=== PATIENT | male | born 1955 | race Caucasian/White ===

== ENCOUNTER 2018-02-03 23:37 | Emergency (ER) | payer BC ==
[~2018-02-03] VITALS: Ht 182.9 cm; Wt 98.9 kg
[2018-02-04 00:50] LABS: BASOPHILS # (AUTO) 0.1 (0.0-0.1); BASOPHILS % 0.3 % (0.0-1.0); HEMATOCRIT 44.1 % (38.2-49.6); HEMOGLOBIN 15.5 g/dL (14.0-18.0); LYMPHOCYTES # (AUTO) 1.5 (1.0-3.2); LYMPHOCYTES % 8.7 % (18.0-39.1); MEAN CORPUSCULAR HEMOGLOBIN 31.8 pg (28-32); MEAN CORPUSCULAR HGB CONC 35.1 g/dL (31-35); MEAN CORPUSCULAR VOLUME 90.4 fL (81-99); MONOCYTES # (AUTO) 1.7 (0.2-0.8); MONOCYTES % 10.2 % (4.4-11.3); NEUTROPHILS # (AUTO) 13.5 (2.1-6.9); NEUTROPHILS % 80.3 % (38.7-80.0); PLATELET COUNT 223 x10e3/uL (140-360); RED BLOOD COUNT 4.88 x10e6/uL (4.3-5.7); RED CELL DISTRIBUTION WIDTH 12.1 % (11.7-14.4)
[2018-02-04 00:51] LABS: KETONES,URINE TRACE (NEGATIVE); LEUKOCYTE ESTERASE ,URINE 1+ (NEGATIVE); NITRITE,URINE NEGATIVE (NEGATIVE); URINE UROBILINOGEN 4 mg/dL (0.2 - 1)
[2018-02-04 00:52] LABS: BILIRUBIN,URINE 1+ (NEGATIVE); CLARITY,URINE CLOUDY (CLEAR); COLOR,URINE AMBER (YELLOW); PROTEIN,URINE DIPSTICK 2+ (NEGATIVE)
[2018-02-04 00:59] LABS: EPITHELIAL CELLS,URINE RARE /LPF; RBC,URINE >50 /HPF (0-5)
[2018-02-04 01:06] LABS: INR 1.01; PROTHROMBIN TIME 12.5 seconds (11.9-14.5)
[2018-02-04 01:07] LABS: PARTIAL THROMBOPLASTIN TIME 30.6 seconds (23.8-35.5)
[2018-02-04 01:13] LABS: ALANINE AMINOTRANSFERASE 18 IU/L (0-55); ALBUMIN 4.2 g/dL (3.5-5.0); ALBUMIN/GLOBULIN RATIO 0.9 (0.8-2.0); ALKALINE PHOSPHATASE 66 IU/L (40-150); ANION GAP 17.9 mmol/L (8-16); BLOOD UREA NITROGEN 12 mg/dL (7-26); BUN/CREATININE RATIO 13 (6-25); CALCIUM 9.7 mg/dL (8.4-10.2); CARBON DIOXIDE 24 mmol/L (22-29); CHLORIDE 98 mmol/L (98-107); CREATININE, SERUM 0.95 mg/dL (0.72-1.25); EST GLOMERULAR FILTRATION RATE > 60 ML/MIN (60-); GLUCOSE 151 mg/dL (74-118); POTASSIUM 3.9 mmol/L (3.5-5.1); SODIUM 136 mmol/L (136-145)
--- NOTE | 2018-02-04 01:17 | Diagnostic Imaging Report ---
EXAM: CT Abdomen and Pelvis WITHOUT contrast INDICATION: Flank pain COMPARISON: None. TECHNIQUE: Abdomen and pelvis were scanned utilizing a multidetector helical scanner from the lung base to the pubic symphysis without administration of IV contrast. Absence of intravenous contrast decreases sensitivity for detection of focal lesions and vascular pathology. Coronal and sagittal reformations were obtained. Stone protocol is performed. IV CONTRAST: None. ORAL CONTRAST: None RADIATION DOSE: Total DLP: 758.9 mGy*cm Estimated effective dose: (DLP x 0.015 x size factor) mSv COMPLICATIONS: None FINDINGS: LINES and TUBES: None. LOWER THORAX: Right lower lobe airspace opacity compatible with pneumonia best visualized on series 3, image 7 HEPATOBILIARY: No focal hepatic lesions. No biliary ductal dilation. GALLBLADDER: No radio-opaque stones or sludge. No wall thickening. SPLEEN: No splenomegaly. PANCREAS: No focal masses or ductal dilatation. ADRENALS: No adrenal nodules KIDNEYS/URETERS: No hydronephrosis. 1 cm cyst in the lateral interpolar region of the left kidney. No stones. GI TRACT: No abnormal distention, wall thickening, or evidence of bowel obstruction. There are diverticula within the colon without evidence of diverticulitis. Appendix is normal. PELVIC ORGANS/BLADDER: Unremarkable. LYMPH NODES: No lymphadenopathy. VESSELS: There is mild atherosclerotic disease in the aorta and major arterial branches. PERITONEUM / RETROPERITONEUM: No free air or fluid. BONES: There are mild degenerative changes in the lumbar spine. SOFT TISSUES: There are bilateral fat containing inguinal hernias. IMPRESSION: 1. Findings are compatible with right lower lobe pneumonia. 2. No evidence of nephrolithiasis or hydronephrosis. 3. Diverticulosis without evidence of diverticulitis. Signed by: Dr. Marcial Goddard M.D. on 02/04/2018 1:13 AM
[2018-02-04] MEDS ORDERED: LEVOFLOXACIN 250 MG TAB ONE (02:08)
[2018-02-04 02:09] VITALS: BP 132/91
[2018-02-04] MEDS ORDERED: LEVOFLOXACIN 250 MG TAB PO ONE (02:15)
== END 2018-02-04 02:34 | disposition home or self-care (01) ==
LOC: ER 23:37
DX: N30.01 Acute cystitis with hematuria (principal); R05 Cough; J15.9 Unspecified bacterial pneumonia
CPT/HCPCS: 36415; 74176; 80053; 81001; 85025; 85610; 85730; 99284

== ENCOUNTER 2018-02-09 12:00 | Emergency (ER) | payer BC ==
[~2018-02-09] VITALS: Ht 182.9 cm; Wt 98.9 kg
--- OUTSIDE RECORDS SUMMARY | 2018-02-09 12:03 | XMS REPORT ---
Author Author [facility] Address Unknown Phone Unavailable Care Team Providers Care Ham Stringer Name Role Phone KAYLENE WATSON Unavailable Unavailable Problems This patient has no known problems. Allergies, Adverse Reactions, Alerts This patient has no known allergies or adverse reactions. Medications This patient has no known medications. Results Test Description Test Time Test Comments Text Results Atomic Results Result Comments CT ABDOMEN/PELVIS WO [place] [address] Patient Name: MARY HINTON MR #: [id number] : 1955 Age/Sex: 62/M Req #: [id number] Adm Physician: Ordered by: KAYLENE WATSON MD Report #: [id number] Location: ER Room/Bed: Procedure: [id number] CT/CT ABDOMEN/PELVIS WO Exam Date: 02/04/18 Exam Time: 34 REPORT STATUS: Signed EXAM: CT Abdomen and Pelvis WITHOUT contrast INDICATION: Flank pain COMPARISON: None. TECHNIQUE: Abdomen and pelvis were scanned utilizing a multidetector helical scanner from the lung base to the pubic symphysis without administration of IV contrast. Absence of intravenous contrast decreases sensitivity for detection of focal lesions and vascular pathology. Coronal and sagittal reformations were obtained. Stone protocol is performed. IV CONTRAST: None. ORAL CONTRAST: None RADIATION DOSE: Total DLP: 758.9 mGy *cm Estimated effective dose: (DLP x 0.015 x size factor) mSv COMPLICATIONS: None FINDINGS: LINES and TUBES: None. LOWER THORAX: Right lower lobe airspace opacity compatible with pneumonia best visualized on series 3, image 7 HEPATOBILIARY: No focal hepatic lesions. No biliary ductal dilation. GALLBLADDER: No radio-opaque stones or sludge. No wall thickening. SPLEEN: No splenomegaly. PANCREAS: No focal masses or ductal dilatation. ADRENALS: No adrenal nodules KIDNEYS/URETERS: No hydronephrosis. 1 cm cyst in the lateral interpolar region of the left kidney. No stones. GI TRACT: No abnormal distention, wall thickening, or evidence of bowel obstruction. There are diverticula within the colon without evidence of diverticulitis. Appendix is normal. PELVIC ORGANS/BLADDER: Unremarkable. LYMPH NODES: No lymphadenopathy. VESSELS: There is mild atherosclerotic disease in the aorta and major arterial branches. PERITONEUM / RETROPERITONEUM: No free air or fluid. BONES: There are mild degenerative changes in the lumbar spine. SOFT TISSUES: There are bilateral fat containing inguinal hernias. IMPRESSION: 1. Findings are compatible with right lower lobe pneumonia. 2. No evidence of nephrolithiasis or hydronephrosis. 3. Diverticulosis without evidence of diverticulitis. Signed by: Dr. Marcial Goddard M.D. on 08/2018 1:13 AM Dictated By: MARCIAL LAZCANO MD 2 Transcribed By: ALAF on 02/04/18112 COPY TO: KAYLENE WATSON MD
--- OUTSIDE RECORDS SUMMARY | 2018-02-09 12:03 | XMS REPORT | Continuity of Care Document ---
Author Author [facility] Organization [facility] Address [address] [place] [address] Phone Unavailable Care Team Providers Care Adoption Specialist Name Role Phone AZAEL CAMARGO MD PCP Insurance Providers Guarantor Mary Hinton Address [address] [place] [id number] Payer [facility] Policy Number [id number] Subscriber's Name Mary Hinton Relationship 18 Self / Same As Patient Group Number [id number] Group Name NRG Effective Date 09 Advance Directives Directive Response Recorded Date/Time Does the patient have an advance directive? No 02/11/11 6:41pm If yes, is advance directive on file with [facility]? No 02/11/11 6:41pm If not on file with [facility] will patient provide a copy? Yes 02/04/18 1:43am Do you have a Directive to Physician? No 02/04/18 1:43am Do you have a Medical Power of Wrapper Counter? No 02/04/18 1:43am Do you have an out of hospital Do Not Resuscitate Order? No 02/04/18 1:43am Do you have any special needs we should be aware of? No 02/04/18 1:43am Do you have a support person here with you today? Yes 02/04/18 1:43am Did patient receive Notice of Privacy Practices? Yes 02/04/18 1:43am Did patient receive patient rights and responsibilities? Yes 02/04/18 1:43am Problems No problem information available. Medications No medication information available. Social History No social history information available. Hospital Discharge Instructions No hospital discharge instruction information available. Plan of Care Discharge Date 02/04/18 2:34am Disposition HOME, SELF-CARE Condition at Discharge Stable Instructions/Education Provided Hematuria - Male Pneumonia - Bacterial Forms Provided Work/School Excuse Prescriptions See Medication Section Referrals AZAEL CAMARGO MD Order Date: [facility] Address: [address] [place] [id number] Additional Instructions/Education TAKE MEDICATIONS PRESCRIBED DRINK PLENTY OF WATER, AT LEAST 80 OUNCES PER DAY FOLLOW-UP WITH YOUR DOCTOR SOON POSSIBLE Functional Status No functional status information available. Allergies, Adverse Reactions, Alerts No known allergies. Immunizations No immunization information available. Vital Signs Acute Vital Signs Vital Response Date/Time Pulse Pulse Rate (adult) 65 bpm (60 - 90) 02/04/2018 2:09am Respiratory Rate 16 bpm (12 - 24) 02/04/2018 2:09am Blood Pressure 132/91 mm Hg 02/04/2018 2:09am Height 6 ft 0 in 02/04/2018 12:14am Weight 218 lb 02/04/2018 12:14am Body Mass Index 29.6 kg/m^2 02/04/2018 12:14am Results Laboratory Results Test Name Result Units Flags Reference Collection Date/Time Result Date/ Time Comments White Blood Count 16.81 x10e3/uL H 4.8-10.8 02/04/2018 12:30am 2017 12:52am Red Blood Count 4.88 x10e6/uL 4.3-5.7 02/04/2018 12:30am 02/04/2018 12: 52am Hemoglobin 15.5 g/dL 14.0-18.0 02/04/2018 12:30am 02/04/2018 12:52am Hematocrit 44.1 % 38.2-49.6 02/04/2018 12:30am 02/04/2018 12:52am Mean Corpuscular Volume 90.4 fL 81-99 02/04/2018 12:30am 02/04/2018 12: 52am Mean Corpuscular Hemoglobin 31.8 pg 28-32 02/04/2018 12:30am 2017 12:52am Mean Corpuscular Hemoglobin Concent 35.1 g/dL H 31-35 02/04/2018 12:30am 02/04/2018 12:52am Red Cell Distribution Width 12.1 % 11.7-14.4 02/04/2018 12:30am 2017 12:52am Platelet Count 223 x10e3/uL 140-360 02/04/2018 12:30am 02/04/2018 12: 52am Neutrophils (%) (Auto) 80.3 % H 38.7-80.0 02/04/2018 12:30am 02/04/2018 12:52am Lymphocytes (%) (Auto) 8.7 % L 18.0-39.1 02/04/2018 12:30am 02/04/2018 12:52am Monocytes (%) (Auto) 10.2 % 4.4-11.3 02/04/2018 12:30am 02/04/2018 12: 52am Eosinophils (%) (Auto) 0.0 % 0.0-6.0 02/04/2018 12:30am 02/04/2018 12: 52am Basophils (%) (Auto) 0.3 % 0.0-1.0 02/04/2018 12:30am 02/04/2018 12: 52am IM GRANULOCYTES % 0.5 % 0.0-1.0 02/04/2018 12:30am 02/04/2018 12:52am Neutrophils # (Auto) 13.5 H 2.1-6.9 02/04/2018 12:30am 02/04/2018 12: 52am Lymphocytes # (Auto) 1.5 1.0-3.2 02/04/2018 12:30am 02/04/2018 12: 52am Monocytes # (Auto) 1.7 H 0.2-0.8 02/04/2018 12:30am 02/04/2018 12: 52am Eosinophils # (Auto) 0.0 0.0-0.4 02/04/2018 12:30am 02/04/2018 12: 52am Basophils # (Auto) 0.1 0.0-0.1 02/04/2018 12:30am 02/04/2018 12:52am Absolute Immature Granulocyte (auto 0.08 x10e3/uL 0-0.1 02/04/2018 12: 30am 02/04/2018 12:52am Prothrombin Time 12.5 seconds 11.9-14.5 02/04/2018 12:30am 02/04/2018 1 :10am Prothromb Time International Ratio 1.01 02/04/2018 12:30am 2017 1:10am Oral Anticoagulant Therapy INR Values: 1. Low Intensity Therapy 1.5 - 2.0 2. Moderate Intensity Therapy 2.0 - 3.0 3. High Intensity Therapy(1) 2.5 - 3.5 4. High Intensity Therapy(2) 3.0 - 4.0 5. Panic Value INR > 5.0 Activated Partial Thromboplast Time 30.6 seconds 23.8-35.5 02/04/2018 12 :30am 02/04/2018 1:10am Urine Color JAYNE H YELLOW 02/04/2018 12:30am 02/04/2018 12:52am Urine Clarity CLOUDY H CLEAR 02/04/2018 12:30am 02/04/2018 12:52am Urine Specific [place] 1.015 1.010-1.025 02/04/2018 12:30am 2017 12:52am Urine pH 6.5 5 - 7 02/04/2018 12:30am 02/04/2018 12:52am Urine Leukocyte Esterase 1+ H NEGATIVE 02/04/2018 12:30am 02/04/2018 12:52am Urine Nitrite NEGATIVE NEGATIVE 02/04/2018 12:30am 02/04/2018 12: 52am Urine Protein 2+ H NEGATIVE 02/04/2018 12:30am 02/04/2018 12:52am Urine Glucose (UA) NEGATIVE NEGATIVE 02/04/2018 12:30am 02/04/2018 12 :52am Urine Ketones TRACE H NEGATIVE 02/04/2018 12:30am 02/04/2018 12:52am Urine Urobilinogen 4 mg/dL H 0.2 - 1 02/04/2018 12:30am 02/04/2018 12: 52am Urine Bilirubin 1+ H NEGATIVE 02/04/2018 12:30am 02/04/2018 12:52am Confirmatory test currently unavailable. False positive results may occur. Urine Blood 4+ H NEGATIVE 02/04/2018 12:30am 02/04/2018 12:52am Urine WBC 6-10 /HPF H 0-5 02/04/2018 12:30am 02/04/2018 12:59am Urine RBC >50 /HPF H 0-5 02/04/2018 12:30am 02/04/2018 12:59am Urine Bacteria NONE /HPF NONE 02/04/2018 12:30am 02/04/2018 12:59am Urine Epithelial Cells RARE /LPF NONE 02/04/2018 12:30am 02/04/2018 12: 59am Sodium Level 136 mmol/L 136-145 02/04/2018 12:30am 02/04/2018 1:21am Potassium Level 3.9 mmol/L 3.5-5.1 02/04/2018 12:30am 02/04/2018 1: 21am Chloride Level 98 mmol/L 98-107 02/04/2018 12:30am 02/04/2018 1:21am Carbon Dioxide Level 24 mmol/L 22-29 02/04/2018 12:30am 02/04/2018 1: 21am Anion Gap 17.9 mmol/L H 8-16 02/04/2018 12:30am 02/04/2018 1:21am Blood Urea Nitrogen 12 mg/dL 7-26 02/04/2018 12:30am 02/04/2018 1:21am Creatinine 0.95 mg/dL 0.72-1.25 02/04/2018 12:30am 02/04/2018 1:21am BUN/Creatinine Ratio 13 6-25 02/04/2018 12:30am 02/04/2018 1:21am Estimat Glomerular Filtration Rate > 60 ML/MIN 60- 02/04/2018 12:30am 02/04/2018 1:21am Ranges were taken from the National Kidney Disease Education Program and the National [employer] literature. Reference ranges: 60 or greater: Normal 16-59 (for 3 consecutive months): Chronic kidney disease 15 or less: Kidney failure Glucose Level 151 mg/dL H 74-118 02/04/2018 12:30am 02/04/2018 1:21am Calcium Level 9.7 mg/dL 8.4-10.2 02/04/2018 12:30am 02/04/2018 1:21am Total Bilirubin 1.1 mg/dL 0.2-1.2 02/04/2018 12:30am 02/04/2018 1:21am Aspartate Amino Transf (AST/SGOT) 32 IU/L 5-34 02/04/2018 12:30am 02/04 1:21am Alanine Aminotransferase (ALT/SGPT) 18 IU/L 0-55 02/04/2018 12:30am 08/2018 1:21am Total Protein 8.9 g/dL H 6.5-8.1 02/04/2018 12:30am 02/04/2018 1:21am Albumin 4.2 g/dL 3.5-5.0 02/04/2018 12:30am 02/04/2018 1:21am Globulin 4.7 g/dL H 2.3-3.5 02/04/2018 12:30am 02/04/2018 1:21am Albumin/Globulin Ratio 0.9 0.8-2.0 02/04/2018 12:30am 02/04/2018 1: 21am Alkaline Phosphatase 66 IU/L 40-150 02/04/2018 12:30am 02/04/2018 1: 21am Procedures Procedure Status Date Provider(s) CT of abdomen and pelvis without contrast Active 02/04/18 KAYLENE WATSON MD Encounters Encounter Location Arrival/Admit Date Discharge/Depart Date Attending Provider Departed Emergency Room [facility] 02/03/18 11:37pm 02/04 2:34am KAYLENE WATSON MD
[2018-02-09] MEDS ORDERED: SODIUM CHLORIDE 0.9% 1000ML 1,000 ML IV SCH ×2 (12:20→13:15)
[2018-02-09] MEDS ORDERED: ONDANSETRON HCL INJ 2 MG/ML VIAL IV STA (12:20)
[2018-02-09] MEDS ORDERED: LEVAQUIN500 MG PO (14:46)
[2018-02-09 16:52] VITALS: BP 130/82
== END 2018-02-09 15:45 | disposition home or self-care (01) ==
LOC: FSED 12:00
DX: R11.2 Nausea with vomiting, unspecified (principal); T88.7XXA Unspecified adverse effect of drug or medicament, initial encounter
CPT/HCPCS: 71046; 80053; 81003; 85025; 99283; J2405

== ENCOUNTER 2021-04-26 04:47 | Emergency (ER) | payer MEDICARE ==
[~2021-04-26] VITALS: Ht 182.9 cm; Wt 113.4 kg
[~2021-04-26 04:47] MED LIST: LEVAQUIN500 MG PO
[2021-04-26] MEDS ORDERED: DEXAMETHASONE SOD PHOS INJ 4 MG/ML VIAL IV ONE (05:45)
[2021-04-26] MEDS ORDERED: CEFTRIAXONE SOD 1 GM VIAL IV STA (05:46)
[2021-04-26] MEDS ORDERED: ONDANSETRON HCL INJ 2MG/ML 2ML 2 MG/ML VIAL IV STA (05:46)
[2021-04-26] MEDS ORDERED: KETOROLAC TROMETHAMINE 30 MG/ML VIAL IV STA (05:46)
[2021-04-26] MEDS ORDERED: CEFTRIAXONE SOD 1 GM in SODIUM CHLORIDE 0.9% 50ML 50 ML IV STA (05:54)
[2021-04-26] MEDS ORDERED: IOPAMIDOL 370 MG/ML 200 ML INFUS..BTL INJ ONE (05:56)
[2021-04-26] MEDS ORDERED: SODIUM CHLORIDE 0.9% 50ML 50 ML ONE (05:56)
[2021-04-26] MEDS ORDERED: DEXAMETHASONE SOD PHOS INJ 4 MG/ML VIAL ONE (05:57)
[2021-04-26] MEDS ORDERED: AZITHROMYCIN 500MG/NS 250 ML 250 ML IV ONE (06:00)
[2021-04-26] MEDS ORDERED: ACETAMINOPHEN 325 MG TAB PO ONE (06:00)
[2021-04-26] MEDS ORDERED: LACTATED RINGER'S 1,000 ML INJ ONE (06:00)
[2021-04-26] MEDS ORDERED: LACTATED RINGER'S 1,000 ML ONE (06:07)
[2021-04-26] MEDS ORDERED: CEFTRIAXONE SOD 1 GM VIAL ONE (06:07)
[2021-04-26] MEDS ORDERED: ACETAMINOPHEN 325 MG TAB ONE (06:07)
[2021-04-26] MEDS ORDERED: KETOROLAC TROMETHAMINE 30 MG/ML VIAL ONE (06:07)
[2021-04-26] MEDS ORDERED: ONDANSETRON HCL INJ 2MG/ML 2ML 2 MG/ML VIAL ONE (06:07)
[2021-04-26] MEDS ORDERED: AZITHROMYCIN 500MG/NS 250 ML 250 ML ONE (06:07)
[2021-04-26 08:03] LABS: CREATINE KINASE MB 1.6 ng/mL (0-5.0)
[2021-04-26 08:42] VITALS: BP 126/78
== END 2021-04-26 09:15 | disposition short-term general hospital (02) ==
LOC: FSED 05:30
CPT/HCPCS: 36415; 71045; 71260; 80048; 80076; 82550; 82553; 84484; 85025; 85379; 87040; 99284; J0456; J0696; J1100; J1885; J2405; J7121; Q9967; U0002

== ENCOUNTER 2022-04-22 18:05 | Emergency (ER) | payer MEDICARE ==
[~2022-04-22] VITALS: Ht 182.9 cm; Wt 113.4 kg
[2022-04-22] MEDS ORDERED: BACITRACIN ZINC 0.9GM TP ONE (21:09)
== END 2022-04-22 22:08 | disposition home or self-care (01) ==
LOC: FSED 19:13
DX: S91.204A Unspecified open wound of right lesser toe(s) with damage to nail, initial encounter (principal); I10 Essential (primary) hypertension; E78.5 Hyperlipidemia, unspecified; M54.50 Low back pain, unspecified; W22.8XXA Striking against or struck by other objects, initial encounter; Y92.009 Unspecified place in unspecified non-institutional (private) residence as the place of occurrence of the external cause; Z87.891 Personal history of nicotine dependence
CPT/HCPCS: 99283